=== PATIENT | female | born 1980 | race Hispanic/Latino ===

== ENCOUNTER 2018-03-03 11:39 | Inpatient (IN) | payer OTHER ==
[2018-03-03 12:04] VITALS: BMI 26.6
[2018-03-03 13:07] LABS: BASO % 0.5 % (0.0-2.0); EOS % 0.1 % (0.0-4.0); LYMPH # 1.1 K/uL (1.0-4.3); LYMPH % 14.9 % (20.0-40.0); MEAN CELL VOLUME 91.1 fl (81.0-99.0); MEAN CORPUSCULAR HEMOGLOBIN 30.9 pg (27.0-31.0); MEAN CORPUSCULAR HGB CONC 33.9 g/dL (33.0-37.0); MEAN PLATELET VOLUME 12.3 fl (7.2-11.7); MONO # 0.5 K/uL (0.0-0.8); MONO % 6.3 % (0.0-10.0); NEUT # 5.7 K/uL (1.8-7.0); NEUT % 78.2 % (50.0-75.0); NRBC % 0.1 % (0.0-0.0); RBC 3.88 Mil/uL (3.80-5.20); RED CELL DISTRIBUTION WIDTH 13.4 % (11.5-14.5); WHITE BLOOD COUNT 7.3 K/uL (4.8-10.8)
[2018-03-03 13:09] LABS: SQUAMOUS EPITHIAL 5 /hpf (0-5); URINE BACTERIA OCC (<OCC); URINE BILIRUBIN NEGATIVE (NEGATIVE); URINE BLOOD NEGATIVE (NEGATIVE); URINE CLARITY CLOUDY (Clear); URINE COLOR YELLOW (YELLOW); URINE GLUCOSE (UA) NEG (Normal); URINE HYALINE CAST 0-2 /hpf (0-2); URINE LEUKOCYTE ESTERASE NEG Leu/uL (Negative); URINE PROTEIN 100 mg/dL (NEGATIVE); URINE UROBILINOGEN 0.2-1.0 mg/dL (0.2-1.0)
[2018-03-03 13:16] LABS: ALB/GLOB RATIO 0.9 (1.0-2.1); ALBUMIN 2.7 g/dL (3.5-5.0); ALT/SGPT 28 U/L (9-52); AST/SGOT 27 U/L (14-36); BLOOD UREA NITROGEN 10 mg/dl (7-17); CALCIUM 8.7 mg/dL (8.4-10.2); GFR AFRICAN-AMERICAN > 60; GFR NON-AFRICAN AMERICAN > 60
[2018-03-03 14:24] LABS: URIC ACID 6.5 mg/Dl (2.2-7.5)
--- NOTE | 2018-03-03 15:34 | OBHP ---
Datetime: 03/03/2018 15:16 IP Adm Impression: Term, intrauterine IP Admit Plan: Observation/Evaluation Admit Comment, IP Provider: 37 yo G1 at 37+5 wks w/ IVF-conceived prenancy w/ EDC 03/19/2018, sent form office for elevated BPs. Pt reports extreme swelling in legs, arms and face. Pt reports that sh clayton feels like her eyes are swollen. Pt also reports that she had 3 episodes of seeing spots 2 days ag o. Pt reports decreased FM x last 2 days, denies N/V/ abd pain. Pt reports a dull DANIELLE. Pt denies VB and LOF. Pt received her care w/ Dr. Huang. PMH: Healthy PSH: Reconstrutive surgery of both feet d/t trauma in 1991 All: antihistamines--> hallucinations Fam hx: M , breast cancer Father alive, prostate cancer PGynhx: menarche at 13 yo, h/o amenorrhea, denies STDs, abn paps PE: AF BPs 150-160s/80-90's Gen'l: Pt appears comfortable sitting up in stretcher Heart: RRR Abd: soft, NT, gravid Ext: 2+ edema, DTRs 1+ VE: FT/ 40/ -1 posterior A/P: 37 yo G1 at 37+5 wks w/ IVF-conceived w/ pre-eclampsia Will admit for induction of labor with cervidil Will follow sx and BPs GBS negative FHT reactive Extremities - PN: Abnormal Abdomen - PN: Normal Back - PN: Normal Lungs - PN: Normal Heart - PN: Normal General - PN: Normal FHR - Baseline A Provider: 130's Membranes, Provider: Intact Contraction Comments Provider: Q2-3 EGA AdmitDate IP: 37.5 Vital Signs Provider: Reviewed IP Chief Complaint: Signs/Symptoms Gestational HTN NICHD Variability Prov Fetus A: Moderate 6-25bpm NICHD Accel Fetus A IP Provider: [id number] FHR Category Provider Fetus A: Category I NICHD Decel Fetus A IP Provider: None Dilatation, Provider: FT Effacement, Provider: 40 Station, Provider: -1 Genitourinary Exam: Normal
--- NOTE | 2018-03-03 15:49 | OBADHP ---
Datetime: 03/03/2018 15:44 Admit Comment, IP Provider: A/P: 37 yo G1 at 37+5 wks w/ IVF-conceived w/ pre-eclampsia Will admit for induction of labor with cervidil Planm discussed w/ pt and her Will follow sx and BPs GBS negative FHT reactive H_P dictated, "[id number]" (ES) Extremities - PN: Normal Abdomen - PN: Normal Lungs - PN: Normal Heart - PN: Normal General - PN: Normal FHR - Baseline A Provider: 130's Contraction Comments Provider: Q2 Comments, ACOG Physical Exam: Extremities 2 + pitting edema Vital Signs Provider: Reviewed IP Chief Complaint: Signs/Symptoms Gestational HTN NICHD Variability Prov Fetus A: Moderate 6-25bpm NICHD Accel Fetus A IP Provider: [id number] FHR Category Provider Fetus A: Category I NICHD Decel Fetus A IP Provider: None Dilatation, Provider: FT Effacement, Provider: 40 Station, Provider: -1 Genitourinary Exam: Normal EGA AdmitDate IP: 37.5 IP Adm Impression: Term, intrauterine IP Admit Plan: Admit to unit; Initiate labor induction protocol Datetime: 03/03/2018 15:16 Back - PN: Normal Membranes, Provider: Intact
[2018-03-03] MEDS: Lactated Ringer's 1,000 ML IV SCH (16:00)
[2018-03-03] MEDS ORDERED: Oxytocin 30 units/LR 500ML 30 U/500 ML BAG IV SCH (16:15)
--- NOTE | 2018-03-03 21:08 | HP ---
HISTORY OF PRESENT ILLNESS: This is a 37-year-old G1 at 37 weeks and 5 days with an IVF conceived with an EDC of 03/19/2018 who was sent from the office for elevated blood pressures. The patient reports that she is extremely swollen in her arms,face, and legs. She reports 3 episodes of seeing spots 2 days ago and reports that her eyes feel swollen. The patient reports that she has a dull headache. She denies vaginal bleeding, leaking of fluid, and reports decrease movement over the last 2 days. She denies nausea, vomiting, or abdominal pain. The patient received her care with [facility] with Dr. Huang. PAST MEDICAL HISTORY: Healthy. PAST SURGICAL HISTORY: Reconstructive surgery of both feet due to trauma in 1991. MEDICATIONS: vitamins. ALLERGIES: ANTIHISTAMINES CAUSE HALLUCINATIONS. FAMILY HISTORY: Mother was and had breast cancer and father has prostate cancer and he is alive. SOCIAL HISTORY: The patient denies tobacco, alcohol, or illicit drug use. GYNECOLOGIC HISTORY: Menarche at 13. The patient has a long history of amenorrhea for which she needed IVF to conceive. The patient denies any STDs or any abnormal Pap smears. PHYSICAL EXAMINATION: VITAL SIGNS: Afebrile and blood pressures in the 150s-160s/80s-90s. GENERAL: The patient appears comfortable, sitting up in the stretcher. HEART: Regular rate and rhythm. LUNGS: Clear to auscultation bilaterally. ABDOMEN: Soft, nontender, and gravid. EXTREMITIES: 2+ pitting edema. Deep tendon reflexes 0 to 1+. VAGINAL EXAM: Fingertip 40% effaced and -1 station, very posterior at 3:15 p.m. LABS: On 08/11/2017, her Pap smear was negative and HPV was negative. Gonorrhea and Chlamydia were negative. On 09/10/2017, Panorama was low risk male fetus. On 09/10/2017, HIV was nonreactive. Varicella zoster virus was positive. Blood type is A positive. Antibody screen negative. On 09/10/2017, her urine culture was no growth. On 09/10/2017, her RPR was nonreactive. Rubella positive. Hepatitis B surface antigen negative. On 10/07/2017, her maternal serum AFP was negative. On 12/23/2017, her urine culture was no growth. On 12/30/2017, her HIV was nonreactive. RPR was nonreactive. On 12/30/2017, her one-hour Glucola was 85. On 02/24/2018, her group B Strep was negative. On 03/03/2018, white count was normal, her hemoglobin 12, and her platelet count was low at 120. Her comprehensive metabolic panel is within normal limits, although her random glucose is 118 and her urine protein is 100. Uric acid is 6.5 normal and her LDH is 406, which is normal. ASSESSMENT AND PLAN: This is a 37-year-old G1 at 37 with in vitro fertilization conceived with preeclampsia. The patient to be admitted to labor and delivery for an induction that will be started with Cervidil. The plan was discussed with the patient and her . heart tracing is reactive. Group B Streptococcus is negative. Beulah Perez MD
[2018-03-03] MEDS ORDERED: Nalbuphine 20 mg/ml Inj (1 ml) IVP PRN (23:58)
[2018-03-04] MEDS: Lactated Ringer's 1,000 ML IV SCH ×3 (00:19→03:40)
[2018-03-04] MEDS ORDERED: Fentanyl/Bupivacaine HCl 250 ML EPI ONE (02:43)
[2018-03-04] MEDS ORDERED: Oxycodone/Acetaminophen 5/325 mg Tab PO PRN ×4 (06:33→09:44)
[2018-03-04] MEDS ORDERED: Benzocaine/Menthol SPRAY TOP PRN ×2 (06:33→09:44)
--- NOTE | 2018-03-04 06:43 | OBDS ---
MATERNAL INFORMATION Provider Comments: Pt progressed to complete and pushed to deliver a viable male infant through rubi r fluid at 05:41 am. Nuchal cord x 1 easily reduced. Apgars 9 and 9. Wt 2860 gms, 6#5. sowmya isa on mother's abdomen. Cord blood collected. Placenta delivered spontaneously intact w/ 3vc at 05 :45am. Bilateral vaginal sulcal tears repaired w/ 2-0 rapide and 3-0v. Pt and baby tolerated the pr ocedure well. EBL 150mL LABOR SUMMARY EDC: 03/19/2018 00:00 No. Babies in Womb: 1 LABOR INFORMATION Group B Beta Strep: Negative MEMBRANES Membranes Rupture Method: Spontaneous Rupture of Membranes: 03/04/2018 04:13 Amniotic Fluid Color: Clear Amniotic Fluid Amount: None Amniotic Fluid Odor: None
[2018-03-04] MEDS ORDERED: Lactated Ringer's 1,000 ML IV SCH (09:44)
[2018-03-05 08:00] LABS: BASO % 0.2 % (0.0-2.0); EOS % 0.2 % (0.0-4.0); HEMOGLOBIN 10.8 g/dL (12.0-16.0); LYMPH # 1.3 K/uL (1.0-4.3); MEAN CORPUSCULAR HEMOGLOBIN 30.7 pg (27.0-31.0); MEAN CORPUSCULAR HGB CONC 33.3 g/dL (33.0-37.0); MEAN PLATELET VOLUME 11.4 fl (7.2-11.7); MONO # 0.5 K/uL (0.0-0.8); MONO % 6.6 % (0.0-10.0); NEUT # 6.4 K/uL (1.8-7.0); NRBC % 0.1 % (0.0-0.0); RBC 3.52 Mil/uL (3.80-5.20); RED CELL DISTRIBUTION WIDTH 13.8 % (11.5-14.5); WHITE BLOOD COUNT 8.4 K/uL (4.8-10.8)
--- NOTE | 2018-03-05 08:38 | OBPPN ---
Datetime: 03/05/2018 08:36 PP Pain Prov: Within normal limits PP Nausea Prov: Denies PP Flatus Prov: Yes PP Breasts Prov: Not Done PP Heart Prov: Normal PP Lungs Prov: Normal PP Abdomen/Uterus Prov: Normal PP Lochia Prov: Not Done PP Vulva/Perineum Prov: Not Done PP CVA Tenderness Prov: Normal PP Extremities Prov: Normal PP Impression Prov: Normal progression PP Plan Prov: Continue present management PP Progress Note Prov: Patient did well ambulating tolerating diet pain well-controlled Vital signs stable afebrile Uterus from below the line umbilicus Extremities no Homans Post day #1 Regular diet, analgesics as needed, anticipate discharge in a.m. Vital Signs Provider PP: Reviewed
[2018-03-06 02:48] VITALS: BP 148/94; PULSE 94; RESP 20; TEMP 98.9; O2SAT 95
== END 2018-03-05 21:00 | disposition home or self-care (01) | DRG 775 ==
LOC: H.EROB2 11:39 → H.L&D 15:59 → H.EROB2 15:59 → H.L&D 16:02 → H.OB/GYN 03-04 09:05
PROVIDERS: ADMIT Obstetrics & Gynecology; ATTEND Obstetrics & Gynecology
PROC: 4A1HXCZ Monitoring of Products of Conception, Cardiac Rate, External Approach (ICD-10-PCS; 2018-03-03)
PROC: 10E0XZZ Delivery of Products of Conception, External Approach (ICD-10-PCS; principal; 2018-03-04)
PROC: 0UQGXZZ Repair Vagina, External Approach (ICD-10-PCS; 2018-03-04)
DX: O13.4 Gestational [pregnancy-induced] hypertension without significant proteinuria, complicating childbirth (principal); O69.81X0 Labor and delivery complicated by cord around neck, without compression, not applicable or unspecified; O71.4 Obstetric high vaginal laceration alone; Z37.0 Single live birth; Z3A.37 37 weeks gestation of pregnancy; Z80.3 Family history of malignant neoplasm of breast; Z80.42 Family history of malignant neoplasm of prostate